=== PATIENT | female | born 1975 | race Caucasian/White ===

== ENCOUNTER → 2017-06-07 19:06 | Outpatient (CLI) | payer OTHER, SELFPAY ==
[2017-06-13 11:30] LABS: HPV APTIMA, High Risk Negative (Negative)
== END ==
PROVIDERS: Family Provider Family Medicine; PCP Family Medicine; Visit Provider Nurse Practitioner Women's Health
DX: Z12.4 Encounter for screening for malignant neoplasm of cervix (principal)
CPT/HCPCS: 88175; G0145

== ENCOUNTER → 2017-06-15 10:00 | Outpatient (CLI) | payer OTHER, SELFPAY ==
[2017-06-15 11:56] LABS: Absolute Lymphocyte Count 1.38 X10^3/ul (0.83-4.51); Basophil# 0.02 X10^3/uL; Basophil% 0.5 % (0-1); Eosinophil# 0.07 X10^3/uL; Eosinophils% 1.8 % (0-5); Hemoglobin 12.6 g/dl (12.0-15.0); Lymphocyte # 1.38 X10^3/ul (4.0); Lymphocyte % 35.5 % (19-41); Mean Corp Hgb Conc 33.2 g/gl (32-36); Mean Corpuscular Hgb 27.6 pg (27.0-32.0); Mean Corpuscular Volume 83.2 fL (81-99); Mean Platelet Vol. 11.1 fl (6.2-12.0); Monocyte% 10.3 % (0-10); Neutrophil # 2.01 X10^3/uL (2.7-7.7); Neutrophil % 51.6 % (47-70); POSITIVE COUNT NO; POSITIVE DIFFERENTIAL NO; POSITIVE MORPHOLOGY NO; Platelet Count 265 K/mm3 (150-450); RBC Distribution Width CV 13.9 % (11.6-14.6); RBC Distribution Width SD 41.9 fl (35.1-43.9); Red Blood Count 4.57 M/mm3 (4.2-5.4); White Blood Count 3.9 K/mm3 (4.4-11.0)
[2017-06-15 12:27] LABS: Anion Gap 10 (5-15); BUN 6 mg/dL (7-18); BUN/Creat Ratio 8.2 RATIO (10-20); Calcium,Total 8.8 mg/dL (8.5-10.1); Chloride 105 mmol/L (98-107); Creatinine, Serum 0.73 mg/dL (0.55-1.02); EST Glomerular Filtration Rate 93 mL/min (>60); Est Glom Filt Rate - Afr Amer 113 mL/min (>60); Glucose 82 mg/dL (74-106); Magnesium 2.1 mg/dL (1.6-2.6); Potassium 3.5 mmol/L (3.5-5.1); Sodium Level 140 mmol/L (136-145); Thyroid Stim Hormone (TSH) 2.28 uIU/mL (0.358-3.74)
[2017-06-24 08:11] LABS: Anti-Thyroglobulin AB 15.8 IU/mL (0.0-0.9); Thyroglobulin RIA 16 ng/mL (.); Thyroid Peroxidase AB 165 IU/mL (0-34)
== END ==
PROVIDERS: Family Provider Family Medicine; PCP Family Medicine; Visit Provider Family Medicine
DX: R00.2 Palpitations (principal)
CPT/HCPCS: 80048; 83735; 84432; 84439; 84443; 85025; 86376; 86800

== ENCOUNTER → 2017-06-21 10:20 | Outpatient (CLI) | payer OTHER, SELFPAY ==
--- NOTE | 2017-06-21 10:22 | US_ITS ---
STUDY: THYROID ULTRASOUND REASON FOR EXAM: Female, 42 years old. Thyromegaly TECHNIQUE: Ultrasound evaluation of the thyroid was performed with real-time and static pabon-scale imaging. COMPARISON: None. FINDINGS: RIGHT LOBE: The right lobe of the thyroid gland measures 5.3 x 1.6 x 1.4 cm. There is a heterogeneous echotexture. There are no demonstrated solid, cystic or complex lesions. LEFT LOBE: The left lobe of the thyroid gland measures 4.9 x 1.6 x 1.4 cm. There is a heterogeneous echotexture. There is a 6 x 7 x 4 mm solid nodule within the superior pole. ISTHMUS: The isthmus measures 5 mm. The regional lymph nodes are normal. There are small hypoechoic nodules adjacent to the left thyroid gland, measuring 4 x 3 x 3 mm inferiorly, and 8 x 7 x 4 mm in the midportion. These may represent parathyroid glands. US/Thyroid IMPRESSION: Heterogeneous thyroid gland. Small solid nodule measuring less than 1 cm within the left lobe. There are 2 small hypoechoic regions which are posterior to the left lobe of the thyroid gland. These may represent the parathyroid glands. Clinical correlation with laboratory examination is recommended to exclude parathyroid abnormality. A nuclear medicine sestamibi scan can be performed, as clinically indicated. Electronically Signed: Stefan Snider DO at 9:34 EDT Tel , Service support ,
== END ==
PROVIDERS: Family Provider Family Medicine; PCP Family Medicine; Visit Provider Family Medicine
DX: E01.0 Iodine-deficiency related diffuse (endemic) goiter (principal)
CPT/HCPCS: 76536

== ENCOUNTER → 2017-10-29 13:33 | Outpatient (CLI) | payer OTHER, SELFPAY | PROVIDERS: Family Provider Family Medicine; PCP Family Medicine; Visit Provider Nurse Practitioner Women's Health | DX: Z12.31 Encounter for screening mammogram for malignant neoplasm of breast (principal); I34.1 Nonrheumatic mitral (valve) prolapse | CPT/HCPCS: 77063; 77067; 93306 ==

== ENCOUNTER → 2018-05-14 14:06 | Outpatient (CLI) | payer OTHER, SELFPAY ==
[2017-06-07 10:04] VITALS: BMI 33.0
[2018-05-14 16:08] LABS: T4 Total, Thyroxin 7.2 ug/dL (4.8-13.9); Thyroid Stim Hormone (TSH) 2.08 uIU/mL (0.358-3.74)
[2018-05-14 17:20] LABS: PTHIN 62.8 pg/mL (18.4-80.1)
[2018-05-24 12:59] LABS: Anti-Thyroglobulin AB 2.9 IU/mL (0.0-0.9)
== END ==
PROVIDERS: Family Provider Family Medicine; PCP Family Medicine; Referring Provider Family Medicine; Visit Provider Family Medicine
DX: E04.1 Nontoxic single thyroid nodule (principal)
CPT/HCPCS: 36415; 83970; 84432; 84436; 84443; 86800

== ENCOUNTER → 2018-06-03 10:19 | Outpatient (CLI) | payer OTHER, SELFPAY ==
--- NOTE | 2018-06-03 10:23 | US_ITS ---
STUDY: THYROID ULTRASOUND REASON FOR EXAM: Female, 43 years old. Left thyroid nodule. TECHNIQUE: Ultrasound evaluation of the thyroid was performed with real-time and static pabon-scale imaging. COMPARISON: Thyroid ultrasound June 21, 2017. FINDINGS: RIGHT LOBE: The right lobe of the thyroid gland measures 5.3 x 2.0 x 1.3 cm. There is a homogeneous echotexture. There are no demonstrated solid, cystic or complex lesions. LEFT LOBE: The left lobe of the thyroid gland measures 4.8 x 1.7 x 1.2 cm. There is a homogeneous echotexture. There is a grossly stable 7 x 6 x 6 mm solid nodule at the mid pole (mild differences between exams likely reflects interobserver variability). ISTHMUS: The isthmus measures 4 . The regional lymph nodes are normal. Along the lateral posterior margin of the left lobe was a 4 x 4 by 3 mm hypoechoic structure that is unchanged. This is of uncertain etiology, but may be the parathyroid gland US/Thyroid IMPRESSION: Stable left thyroid nodule and stable nearby hypoechoic 4 mm structure. Electronically Signed: Andrea Mcpherson MD at 18:47 EDT , Service support ,
== END ==
PROVIDERS: Family Provider Family Medicine; PCP Family Medicine; Referring Provider Family Medicine; Visit Provider Family Medicine
DX: E04.1 Nontoxic single thyroid nodule (principal)
CPT/HCPCS: 76536

== ENCOUNTER → 2019-01-31 15:43 | Outpatient (CLI) | payer OTHER, SELFPAY ==
[2018-12-27 14:32] VITALS: BMI 38.4
[2019-01-31 18:18] LABS: Absolute Lymphocyte Count 1.83 X10^3/uL (0.83-4.51); Absolute Neutrophil Count 4.1 X10^3/uL (2.0-7.7); Basophil# 0.04 X10^3/uL; Basophil% 0.6 % (0-1); Eosinophils% 1.5 % (0-5); Hematocrit 38.4 % (37-47); Hemoglobin 12.2 g/dL (12.0-15.0); Lymphocyte # 1.83 X10^3/ul (4.0); Lymphocyte % 27.5 % (19-41); Mean Corp Hgb Conc 31.8 g/dL (32-36); Mean Corpuscular Hgb 27.2 pg (27.0-32.0); Mean Corpuscular Volume 85.5 fL (81-99); Mean Platelet Vol. 9.8 fl (6.2-12.0); Monocyte# 0.55 X10^3/uL; Monocyte% 8.3 % (0-10); NRBC Flagged by Analyzer 0 % (0-5); Neutrophil # 4.12 X10^3/uL (2.7-7.7); Neutrophil % 61.8 % (47-70); Platelet Count 309 K/mm3 (150-450); RBC Distribution Width CV 12.6 % (11.6-14.6); RBC Distribution Width SD 39.1 fl (35.1-43.9); Red Blood Count 4.49 M/mm3 (4.2-5.4); White Blood Count 6.7 K/mm3 (4.4-11.0)
[2019-01-31 18:29] LABS: ALB/GLOB Ratio 1.1 RATIO (0.9-2.4); AST(SGOT) 17 U/L (15-37); Alanine Aminotransfer ALT/SGPT 22 U/L (13-56); Albumin, Serum 3.8 g/dL (3.2-5.0); Alkaline Phosphatase 57 U/L (45-117); Anion Gap 8 (5-15); BUN 22 mg/dL (7-18); BUN/Creat Ratio 25.9 RATIO (10-20); Calcium,Total 8.8 mg/dL (8.5-10.1); Chloride 106 mmol/L (98-107); Creatinine, Serum 0.85 mg/dL (0.55-1.02); EST Glomerular Filtration Rate 78 mL/min (>60); Est Glom Filt Rate - Afr Amer 95 mL/min (>60); Globulin 3.6 g/dL (2.2-4.2); Glucose 81 mg/dL (74-106); Potassium 3.8 mmol/L (3.5-5.1); Protein, Total 7.4 g/dL (6.4-8.2); Sodium Level 138 mmol/L (136-145)
== END ==
PROVIDERS: Family Provider Family Medicine; PCP Family Medicine; Referring Provider Family Medicine; Visit Provider Family Medicine
DX: Z01.818 Encounter for other preprocedural examination (principal)
CPT/HCPCS: 36415; 80053; 85025

== ENCOUNTER 2019-02-21 07:54 | Day surgery (SDC) | payer OTHER, SELFPAY ==
[2018-12-27 14:32] VITALS: BMI 38.4
[2019-02-21] VITALS (8 sets, daily range): BP systolic 103–135; BP diastolic 73–85; PULSE 60–80; RESP 16; TEMP 36.2–36.9; O2SAT 95–100; BMI 33.8
[2019-02-21 08:38] LABS: Internal QC Validated? YES +Cl - CLEAR BKGD; Pregnancy, Urine Negative Negative
[2019-02-21] MEDS: Lactated Ringers 1,000 ML 100 ML IV (08:53)
--- NOTE | 2019-02-21 09:30 | RAD_ITS ---
STUDY: X-RAY - RIGHT CALCANEUS REASON FOR EXAM: Female, 43 years old. The entire fasciotomy with resection TECHNIQUE: 13 view(s) of the calcaneus were obtained. COMPARISON: None. FINDINGS: Multiple intraoperative views demonstrate evidence of resection of plantar aspect calcaneal spur. RAD/Calcaneus min 2 Views IMPRESSION: Status post removal of plantar calcaneal spur. Electronically Signed: Rich Robb MD at 22:06 EST , Service support ,
--- NOTE | 2019-02-21 10:33 | PCM.DC.POD ---
Discharge Diet: Light diet - advance as tolerated Discharge Activity: May not drive while taking narcotic pain medications., Use Walker, Use Crutches Weight Bearing Status: No weight bearing - No weightbearing left foot Keep extremity elevated above heart level: Left Leg - Keep left foot elevated for at least 50 minutes of every hour Call your doctor if your incision/area has: Continuous Slow Oozing, Sudden Increased Bleeding, Foul Smelling Discharge Call your doctor if you observe: Fever of 101 or Higher, Shortness of breath, Chest pain, Increased palpitations (irregular heartbeat), Calf discomfort, Uncontrolled pain Cleanse incision/area with: Do not get Incision Wet, Keep Dressing Clean & Dry Allergies/Adverse Reactions: Allergies cephalexin [From Keflex] Allergy (Mild, Verified 02/21/19 08:37) Other Medications to take at Discharge Hydrocodone/Acetaminophen [[place] 5-325 Tablet] 1 - 2 tab PO Q6H PRN PRN #30 tab 02/21/19 The following prescriptions were given: Hydrocodone/Acetaminophen [[place] 5-325 Tablet] 1 - 2 tab PO Q6H PRN PRN #30 tab PRN Reason: Pain Score 1-10/10 Prescription Printed Primary Care Physician: Emelina Ndiaye MD [Primary Care Provider] - Test Results: Test results from this visit will be discussed in further detail at your follow-up appointment, if applicable. Please Follow Up With: Gregory Spring DPM When: 1 week, sooner if needed
[2019-02-21] MEDS: Bupivacaine Mpf 0.5% 30 ML VIAL (12:30)
--- NOTE | 2019-02-21 12:39 | PCM.OPRPT ---
Report of Operation Date of Procedure: 02/21/19 Pre-Operative Diagnosis: Plantar fasciitis and infracalcaneal spur left foot Post-Operative Diagnosis: Same Surgery/Procedure Performed:: Plantar fasciotomy with resection of infracalcaneal spur, left air cargo agent: yes - Dr. 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 She has elected to undergo surgical intervention - plantar fasciotomy with resection of infracalcaneal heel spur. This was discussed with her in detail, reviewed the possible benefits vs risks, goals, expectations, alternative options, and typical healing/post op recovery. The consent forms were reviewed with her, and she freely signed them. All of her questions were answered. No guarantees or warranties were given nor implied. Operative Procedure: The patient was brought back into the operating room and was placed on the operating room table in the supine position. She was carefully secured to the operating room table with a safety belt around the waist. A time out was performed and the patient was properly identified and the surgical plan was confirmed. The patient received 900mg of IV Clindamycin for antibiotic prophylaxis. A well padded pneumatic tourniquet was applied around the patient's left ankle. The patient received MAC anesthesia per the anesthesiologist, and a total of 26mL of 0.5% Bupivacaine plain was given as a regional nerve block around the heel surgical site. The left foot was scrubbed, prepped, draped in the usual aseptic fashion. The left foot was elevated for 3 minutes and the ankle pneumatic tourniquet was inflated to 250mmHg. The infracalcaneal spur was visualized on intra operative fluoroscopy, image was saved. A skin incision was made to the medial hindfoot at the level of the plantar fascia and infracalcaneal spur, careful dissection was completed down through the subcutaneous tissue layer. A plane was created superiorly and inferiorly around the plantar fascia and the medial 50% of the plantar fascia was released via a plantar fasciotomy. It was noted there was significant thickening of the plantar fascia with fibrosis consistent with chronic plantar fasciitis. The infracalcaneal spur was felt, and was carefully resected using a powered rasp. Resection of the infracalcaneal spur was confirmed using intraoperative fluoroscopy. Images pre and post infracalcaneal spur resection were saved. The site was flushed out with copious amounts of normal saline solution. The skin was reapproximated using 3-0 Nylon. The pneumatic tourniquet was deflated (total tourniquet time was 25 minutes), and there was immediate return of warmth and perfusion to the foot and to all toes on the foot with normal temperature gradient and CFT < 2 seconds to all toes. Hemostasis was achieved. A dressing was applied which consisted of Betadine soaked adaptic, 4x4 gauze, Kerlix and yohannes bandage, being sure to apply it not to tight. The patient tolerated the above operative procedure well at the anesthesia well with no complication. The patient was transported to the recovery room with vital signs stable and in good condition. Post operative orders were placed. Post operative instructions were reviewed and dispensed verbal and written. No weightbearing left foot, keep left foot elevated for at least 50 minutes of every hour, keep dressing clean, dry and intact. Prescription for [place], Ibuprofen and Zofran. She is to follow up within 1 week or sooner if needed. Left foot post op xrays obtained in the recovery room and confirmed infracalcaneal spur resection with no evidence of complication. Grafts/Implants Used: None - Complications None
--- NOTE | 2019-02-21 13:05 | RAD_ITS ---
STUDY: X-RAY - LEFT CALCANEUS REASON FOR EXAM: Female, 43 years old. POST OP HEEL SPUR RESECTION/PLANTAR FASCIOTOMY TECHNIQUE: 2 view(s) of the calcaneus were obtained. COMPARISON: Intraoperative fluoroscopy of the left calcaneus dated February 21, 2019. FINDINGS: Previously seen moderate-sized plantar calcaneal spur has been removed. Several tiny calcific fragments are seen in the surgical bed region . The remaining aspects of the calcaneus are normal. Normal visualized talus and midfoot bony structures. No occult fracture is seen. RAD/Calcaneus min 2 Views IMPRESSION: Status post removal plantar calcaneal spur Electronically Signed: Roberto Carlos Amaro MD at 19:31 EST , Service support ,
== END 2019-02-21 14:37 | disposition home or self-care (01) ==
LOC: SDC 08:02 → AC 08:02
PROVIDERS: Anesthesiology; Family Provider Family Medicine; PCP Family Medicine; Referring Provider Podiatrist; Visit Provider Podiatrist
PROC: (CPT 28119; principal; 2019-02-21 09:15)
DX: M72.2 Plantar fascial fibromatosis (principal); M77.32 Calcaneal spur, left foot; Q21.1 Atrial septal defect; Z87.891 Personal history of nicotine dependence
CPT/HCPCS: 28119; 73650; 76000; 81025; J7120; J2405

== ENCOUNTER → 2019-06-03 | Outpatient (CLI) | payer OTHER, SELFPAY ==
[2019-02-21 08:41] VITALS: BMI 33.8
--- NOTE | 2019-06-03 11:52 | US_ITS ---
STUDY: THYROID ULTRASOUND REASON FOR EXAM: Female, 44 years old. FU NODULES TECHNIQUE: Ultrasound evaluation of the thyroid was performed with real-time and static pabon-scale imaging. COMPARISON: Comparison is made with prior study dated June 03, 2018. FINDINGS: RIGHT LOBE: The right lobe of the thyroid gland measures 5.1 cm x 1.6 cm x 1.3 cm. There is a homogeneous echotexture. There are no demonstrated solid, cystic or complex lesions. LEFT LOBE: The left lobe of the thyroid gland measures 4.8 cm x 1.5 cm x 1.2 cm. There is a homogeneous echotexture. There is a 5 mm x 6 mm x 5 mm well-defined hypoechoic solid nodule in the midpole of the left lobe of the thyroid. This is essentially unchanged. ISTHMUS: The isthmus measures 5.0 mm. Stable 5 mm x 5 mm x 2 mm cyst posterior to the left lobe of the thyroid. US/Thyroid IMPRESSION: Stable examination. Electronically Signed: Sean Felix, at 15:41 EDT , Service support ,
== END | disposition home or self-care (01) ==
LOC: US 11:50
PROVIDERS: PCP Family Medicine; Referring Provider Family Medicine; Visit Provider Family Medicine
DX: E04.1 Nontoxic single thyroid nodule (principal)
CPT/HCPCS: 76536

== ENCOUNTER → 2020-08-27 15:34 | Outpatient (CLI) | payer OTHER, SELFPAY ==
[2019-02-21 08:41] VITALS: BMI 33.8
--- NOTE | 2020-08-27 15:37 | RAD_ITS ---
STUDY: X-RAY CHEST REASON FOR EXAM: Female, 45 years old. Dyspnea TECHNIQUE: Frontal and lateral views COMPARISON: 02/22/2015 FINDINGS: The lungs are clear and expanded. There is no demonstrated pleural abnormality. Normal size heart. Normal mediastinum and abhishek. Normal visualized pulmonary arteries. Normal visualized aortic arch and descending thoracic aorta. Normal visualized thoracic spine. Normal visualized ribs, clavicles, and shoulders. There is no demonstrated abnormality of the visualized soft tissue structures of the upper abdomen. RAD/Chest PA and Lateral IMPRESSION: Normal x-ray examination of the chest. Electronically Signed: Brandon Swanson DO at 16:04 EDT Tel [phone], Service support ,
[2020-08-27 17:35] LABS: Absolute Lymphocyte Count 2.22 X10^3/uL (0.83-4.51); Absolute Neutrophil Count 5.5 X10^3/uL (2.0-7.7); Basophil# 0.04 X10^3/uL; Basophil% 0.5 % (0-1); Eosinophil# 0.12 X10^3/uL; Eosinophils% 1.4 % (0-5); Hematocrit 39.2 % (37-47); Hemoglobin 12.5 g/dL (12.0-15.0); Lymphocyte # 2.22 X10^3/ul (0.83-4.51); Lymphocyte % 26.2 % (19-41); Mean Corp Hgb Conc 31.9 g/dL (32-36); Mean Corpuscular Hgb 26.9 pg (27.0-32.0); Mean Corpuscular Volume 84.3 fL (81-99); Mean Platelet Vol. 10.1 fl (6.2-12.0); Monocyte# 0.61 X10^3/uL; Monocyte% 7.2 % (0-10); NRBC Flagged by Analyzer 0 % (0-5); Neutrophil # 5.45 X10^3/uL (2.7-7.7); Neutrophil % 64.5 % (47-70); Platelet Count 369 K/mm3 (150-450); RBC Distribution Width SD 39.8 fl (35.1-43.9); Red Blood Count 4.65 M/mm3 (4.2-5.4); White Blood Count 8.5 K/mm3 (4.4-11.0)
[2020-08-27 18:04] LABS: ALB/GLOB Ratio 1.1 RATIO (0.9-2.4); AST(SGOT) 18 U/L (15-37); Alanine Aminotransfer ALT/SGPT 19 U/L (13-56); Alkaline Phosphatase 64 U/L (45-117); Anion Gap 9 (5-15); BUN 21 mg/dL (7-18); Calcium,Total 9.1 mg/dL (8.5-10.1); Chloride 106 mmol/L (98-107); Creatinine, Serum 0.81 mg/dL (0.55-1.02); EST Glomerular Filtration Rate 82 mL/min (>60); Est Glom Filt Rate - Afr Amer 99 mL/min (>60); Globulin 3.7 g/dL (2.2-4.2); Glucose 85 mg/dL (74-106); Potassium 3.7 mmol/L (3.5-5.1); Protein, Total 7.7 g/dL (6.4-8.2); Sodium Level 140 mmol/L (136-145); Thyroid Stim Hormone (TSH) 1.47 uIU/mL (0.358-3.74)
== END ==
PROVIDERS: PCP Family Medicine; Referring Provider Family Medicine; Visit Provider Family Medicine
DX: R06.00 Dyspnea, unspecified (principal)
CPT/HCPCS: 36415; 71046; 80053; 84443; 85025

== ENCOUNTER 2022-04-23 09:49 | Emergency (ER) | payer OTHER, SELFPAY ==
[2022-04-23 09:49] VITALS: BP 149/99; PULSE 73; RESP 18; TEMP 36.6; O2SAT 99; BMI 27.3
--- NOTE | 2022-04-23 10:04 | EDS_ITS ---
HPI History of Present Illness Chief Complaint: Headache Informant: patient Onset/Context/Timing Onset: Today Quality -Headache: Positive for Similar Prior Headaches Current Severity: Severe Maximum Severity: Severe Narrative Narrative: Patient presents secondary to migraine. She is a history of migraines and states the pattern of this is similar but slightly worse than her normal. She took 2 Excedrin this morning without improvement. She does have light sensitivity along with nausea and vomiting. She states she had recent cold-like symptoms with some sinus pressure. No recent head injury. [facility] Medical History (Updated 04/23/22 @ 11:[address] Savi Roach MD) Angeles's disease Migraine Mitral valve disorder PFO (patent foramen ovale) Thyroid nodule Home Medications hydrocodone-acetaminophen 5-325mg 5mg-325mg 1 - 2 tab PO Q6H PRN PRN Pain Score 1-10/10 #30 tabs 02/21/19 [Rx Last Taken Unknown] ibuprofen 400 mg tablet 400 mg PO Q8H PRN PRN Pain Score 1-10/10 #30 tabs 02/21/19 [Rx Last Taken Unknown] ondansetron HCl 4 mg tablet 4 mg PO Q8H PRN PRN Nausea #10 tabs 02/21/19 [Rx Last Taken Unknown] Allergy/AdvReac Type Severity Reaction Status Date / Time cephalexin [From Keflex] Allergy Mild Other Verified 04/23/22 09:49 Family History Mother Hypertension Father Hypertension Diabetes Surgical History H/O section H/O tubal ligation Social History adopted: No household members: family housing: house number of children: 2 current occupational status: employed 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 [employer] current occupational exposures/hazards: No Smoking Status: Former smoker second hand exposure: No alcohol intake: current alcohol intake frequency: holidays/special occasions only substance use type: does not use what type of physical activity do you participate in: walking seatbelt use: always do you feel safe at home: Yes additional social history: Spouse- Yayo ROS ROS ED Constitutional Constitutional ED: Denies chills or fever(s) Eyes Eyes: Denies change in vision or discharge from eye(s) ENT ENT ED: Denies discharge from eye(s), rhinorrhea or sore throat Cardiovascular Cardiovascular: Denies chest pain or palpitations Respiratory/Chest Respiratory/Chest: Denies cough or dyspnea Gastrointestinal Gastrointestinal: Reports nausea and vomiting; Denies abdominal pain or diarrhea Genitourinary Genitourinary ED: Denies dysuria Musculoskeletal Musculoskeletal: Denies back pain or extremity pain Integumentary Denies Abrasions or rash Neurologic Neurologic: Reports headache(s); Denies weakness Psychiatric Psychiatric: Denies anxiety or depression Allergic/Immunologic Allergic/Immunologic ED: Denies lip swelling or urticaria EXAM Physical Exam Const Vital Signs: 04/23/22 09:49 Temperature 97.8 F Temperature Source Temporal Pulse Rate 73 Respiratory Rate 18 Blood Pressure 149/99 H Blood Pressure Mean 115 Pulse Ox 99 Oxygen Delivery Method Room Air Positive well nourished and well developed General Appearance ED: well developed HEENT Reports normocephalic and head/scalp atraumatic Eyes PERRL and EOMs intact bilaterally Neck supple and no meningeal signs Chest Wall inspection of chest normal and palpation of chest normal Resp normal respiratory effort and clear to auscultation bilaterally Cardio regular rate and regular rhythm GI normal to inspection, nondistended, normoactive bowel sounds Palpation: soft Extremity Extremity Narrative: Right foot in walking boot Neuro oriented x3 and no sensory deficits noted Sensorium / Orientation: alert Motor Exam: strength 5/5 throughout Psych mental status grossly normal Skin no rashes or lesions noted MDM MDM MDM Narrative Medical decision making narrative: Patient given Toradol, Reglan, Benadryl, IV fluids. On repeat evaluation she states her headache is significantly improved. She will be discharged home with at this time. I do not feel patient needs a CT scan at this time given history of similar migraines and normal neuro exam. Discharge Plan Triage Chief Complaint: Headache ED Provider: Savi Roach Dx/Rx/DC Orders Clinical Impression: Migraine Instructions: ED, Migraine (Classical) Prescriptions: No Action hydrocodone-acetaminophen 1 EACH tablet 1 - 2 tab PO Q6H PRN PRN (Reason: Pain Score 1-10/10) Qty: 30 0RF ondansetron HCl 4 MG tablet 4 mg PO Q8H PRN PRN (Reason: Nausea) Qty: 10 0RF ibuprofen 400 MG tablet 400 mg PO Q8H PRN PRN (Reason: Pain Score 1-10/10) Qty: 30 0RF Primary Care Provider: Nick Conway Referrals: Emelina Ndiaye MD [Med Staff - Junior Account Executive] - Nick Conway DO [Primary Care Provider] - As Needed Disposition Disposition: Home, Self Care
[2022-04-23] MEDS: DiphenhydrAMINE 50 MG/ML Syringe 25 MG IV (10:37)
[2022-04-23] MEDS: 0.9% Normal Saline 1,000 ML 999 ML IV (10:37)
[2022-04-23] MEDS: Ketorolac 30 MG/ML Syringe IV (10:38)
[2022-04-23] MEDS: Metoclopramide 10 MG/2 ML Vial IV (10:38)
== END 2022-04-23 12:09 | disposition home or self-care (01) ==
PROVIDERS: Emergency Provider Emergency Medicine; PCP Student in an Organized Health Care Education/Training Program; Visit Provider Emergency Medicine
DX: G43.909 Migraine, unspecified, not intractable, without status migrainosus (principal); Z87.891 Personal history of nicotine dependence
CPT/HCPCS: 96361; 96374; 96375; 99283; J7030